=== PATIENT | male | born 1940 | race Two or more races ===

== ENCOUNTER 2017-03-08 11:01 | Emergency (ER) | payer MEDICARE ==
[2017-03-08] MEDS ORDERED: ONDANSETRON HCL INJ/PF 4 MG/2 ML SDV IV ONE (11:13)
[2017-03-08] MEDS ORDERED: MORPHINE SULFATE 10 MG/ML INJ IV ONE ×2 (11:13→12:19)
--- NOTE | 2017-03-08 11:15 | ER Document Report ---
ED Medical Screen (RME) - General Chief Complaint: Fall Injury Stated Complaint: FALL/SHOULDER PAIN Time Seen by Provider: 03/08/17 11:12 Notes: Patient was referred from an outside facility. Patient brings a copy of his x- ray with him. He states it shows that his shoulder is dislocated. He states that this morning he fell while moving some furniture and sustained an injury to his left shoulder. He states he did not hit his head this morning. However he did fall yesterday and hit his head. Patient does have some dried blood on the top of his head from yesterday's fall. Patient is on Coumadin. TRAVEL OUTSIDE OF THE [place] IN LAST 30 DAYS: No - Related Data Allergies/Adverse Reactions: No Known Allergies Allergy (Verified 03/08/17 11:02) Home Medications: Current Home Medications Warfarin Sodium [Warfarin Sodium] 0.5 tab PO DAILY 03/08/17 [History] Physical Exam - Vital signs Vitals: Temp Pulse Resp BP Pulse Ox 98.2 F 67 22 H 148/63 H 94 03/08/17 11:08 03/08/17 11:08 03/08/17 11:08 03/08/17 11:08 03/08/17 11:08 Course - Vital Signs Vital signs: Temp Pulse Resp BP Pulse Ox 98.2 F 67 22 H 148/63 H 94 03/08/17 11:08 03/08/17 11:08 03/08/17 11:08 03/08/17 11:08 03/08/17 11:08
[2017-03-08 12:06] LABS: ABSOLUTE LYMPHOCYTES (AUTO) 0.9 10^3/uL (0.5-4.7); ABSOLUTE MONOCYTES (AUTO) 0.4 10^3/uL (0.1-1.4); ABSOLUTE NEUT (AUTO) 9.9 10^3/uL (1.7-8.2); BASOPHILS % (AUTO) 0.3 % (0-2); EOSINOPHILS % (AUTO) 0.2 % (0-6); HEMATOCRIT 48.2 % (37.9-51.0); HGB HCT DIFFERENCE -0.2; LYMPHOCYTES % (AUTO) 8.3 % (13-45); MEAN CORPUSCULAR HEMOGLOBIN 31.5 pg (27.0-33.4); MEAN CORPUSCULAR HGB CONC 33.1 g/dL (32.0-36.0); MEAN CORPUSCULAR VOLUME 95 fl (80-97); MONOCYTES % (AUTO) 3.7 % (3-13); RED BLOOD COUNT 5.06 10^6/uL (4.35-5.55); RED CELL DISTRIBUTION WIDTH 14.8 % (11.5-14.0); SEGMENTED NEUTROPHILS % (AUTO) 87.5 % (42-78); WHITE BLOOD COUNT 11.4 10^3/uL (4.0-10.5)
--- NOTE | 2017-03-08 12:27 | ER Document Report ---
ED Fall - General Chief Complaint: Fall Injury Stated Complaint: FALL/SHOULDER PAIN Time Seen by Provider: 03/08/17 11:12 Information source: Patient Notes: Patient is a 76-year-old [place]-speaking male who presents with his daughter after the patient had an unwitnessed fall in the kitchen. He states through translation that he is was attempting to move a chair and lost his balance slipping on the floor landing on his left shoulder. Patient went to an outside urgent care center with supposedly an x-ray of the left shoulder showing a displacement without fracture. Patient states initially that he has pain only to his left shoulder. Patient is on Coumadin secondary to a heart valve replacement 15 years ago. When questioned directly the patient does state he has some left lateral rib pain, and some posterior neck pain. He does deny hitting his head or headache. He denies vomiting or loss of consciousness. Pt denies any and all palpitations, lightheadedness, dizziness, chest pain, or any other inciting incident. TRAVEL OUTSIDE OF THE [place] IN LAST 30 DAYS: No - HPI Occurred: This morning Where: Home Context: Tripped, Slipped Associated symptoms: denies: Lost consciousness, Dazed/confused Location of injury/pain: Other - See above Quality of pain: Achy Severity: Mild Pain Level: 2 Prehospital interventions: No: C-collar, Backboard - Related data Allergies/Adverse Reactions: No Known Allergies Allergy (Verified 03/08/17 11:02) Home Medications: Current Home Medications Warfarin Sodium [Warfarin Sodium] 0.5 tab PO DAILY 03/08/17 [History] Past Medical History - General Information source: Patient, Relative - Social History Smoking Status: Never Smoker Cigarette use (# per day): No Chew tobacco use (# tins/day): No Smoking Education Provided: No Frequency of alcohol use: None Drug Abuse: None Family History: Reviewed & Not Pertinent Patient has suicidal ideation: No Patient has homicidal ideation: No Renal/ Medical History: Denies: Hx Peritoneal Dialysis Review of Systems - Review of Systems Constitutional: denies: Fever EENT: denies: Eye discharge, Nose discharge Cardiovascular: denies: Chest pain, Palpitations Respiratory: denies: Cough, Short of breath, Wheezing Gastrointestinal: denies: Vomiting Genitourinary: denies: Dysuria Musculoskeletal: denies: Back pain, Leg swelling Skin: Other - no hives. denies: Rash Neurological/Psychological: Other - no slurred speech -: Yes All other systems reviewed and negative Physical Exam - Vital signs Vitals: Temp Pulse Resp BP Pulse Ox 98.2 F 67 22 H 148/63 H 94 03/08/17 11:08 03/08/17 11:08 03/08/17 11:08 03/08/17 11:08 03/08/17 11:08 Notes: Reviewed vital signs and nursing note as charted by RN. CONSTITUTIONAL: Alert and oriented and responds appropriately to questions. Well -appearing; well-nourished HEAD: Normocephalic; atraumatic EYES: PERRL; full extraocular range of motion ENT: Normal nose; no rhinorrhea NECK: Supple without meningismus; mildly tender to palpation along the midline lateral cervical spine without step-offs, swelling, or obvious deformity CARD: Regular rate and rhythm; no murmurs, no clicks, no rubs, no gallops; symmetric distal pulses RESP: Normal chest excursion without splinting or tachypnea; breath sounds clear and equal bilaterally; no anterior posterior rib pain present ABD/GI: Normal bowel sounds; non-distended; soft, non-tender BACK: The back appears normal and is non-tender to palpation EXT: Patient has decreased range of motion of the left shoulder with loss of fullness to the lateral shoulder region. Sensation is intact to light touch of the lateral shoulder. 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 5 out of 5 bilateral upper and lower extremity strength other than the left upper arm which was not tested secondary to pain PSYCH: The patient's mood and manner are appropriate. Grooming and personal hygiene are appropriate. Course - Re-evaluation Re-evalutation: 03/08/17 12:36 Given the history and physical examination, on Coumadin, I will obtain a CT scan of the head, cervical spine, lateral left ribs, repeat shoulder, INR, and reassess. Patient currently has no focal neurological deficits other than as expected for left shoulder injury. We are unable to open the patient's outside films we will repeat a left shoulder x-ray. I have gone over the anesthesia history with the patient and his daughter. Patient supposedly has had no untoward effects secondary to anesthesia. Patient has no allergies. I have explained the risks and benefits of conscious sedation to the patient and his daughter. They do understand these risks. 03/08/17 13:58 INR and labs as recorded. INR is therapeutic. CT scan of the head and neck shows no obvious acute findings. X-ray left shoulder shows an anterior dislocation. We will prepare the patient for conscious sedation. 03/08/17 16:31 X-ray of the chest as recorded. I have called and discussed the radiograph with Dr. Molina the radiologist. I have alerted her to the left shoulder dislocation on the x-ray of the chest. I have also explained about the patient' s presentation with any lack of cough, shortness of breath, or fevers. I have explained the slip and left shoulder dislocation. She states she does not believe a CT scan is required to further investigate her interpretation as she believes it is most likely low lung volumes. - Vital Signs Vital signs: Temp Pulse Resp BP Pulse Ox 98.2 F 71 16 168/128 H 99 03/08/17 11:08 03/08/17 16:00 03/08/17 16:01 03/08/17 16:01 03/08/17 16:01 - Laboratory Result Diagrams: 03/08/17 11:35 03/08/17 11:35 Laboratory results interpreted by me: 03/08/17 03/08/17 03/08/17 11:35 11:35 11:35 WBC 11.4 H RDW 14.8 H Seg Neutrophils % 87.5 H Lymphocytes % 8.3 L Absolute Neutrophils 9.9 H PT 27.0 H Carbon Dioxide 21 L Glucose 114 H Procedures - Conscious Sedation Conscious sedation Time started: 15:33 Time completed: 15:42 Consent obtained: Yes Prior complications: Procedural sedation Pt with a severe systemic disease.: P3. - ASA Classification. Airway Evaluation: Obese Mallampati Classification: Class 2 Used during procedure: Suction available, IV access obtained, Pulse ox on pt., air conditioning installer on pt. Medications administered: Ketamine Reversal agents: None I personally performed/intraservice time: Sedation, Procedure, 30 min or less Complications: No - Joint Reduction/Fracture Care Left Shoulder Consent obtained: Yes Conscious sedation: Yes Pre-procedure NV exam: Yes Fracture: Closed Manipulation comment: Traction countertraction Post-procedure NV exam: Yes Post-reduction x-ray: Joint reduced Reduction attempts: 1 Complications: No Discharge - Discharge Clinical Impression: Accidental fall Qualifiers: Encounter type: initial encounter Qualified Code(s): W19.XXXA - Unspecified fall, initial encounter Dislocation of left shoulder joint Qualifiers: Encounter type: initial encounter Qualified Code(s): S43.005A - Unspecified dislocation of left shoulder joint, initial encounter Cervical strain, acute Qualifiers: Encounter type: initial encounter Qualified Code(s): S16.1XXA - Strain of muscle, fascia and tendon at neck level, initial encounter Condition: Good Disposition: HOME, SELF-CARE Additional Instructions: Come back immediately with any discoloration of the arm, increased pain, weakness or numbness of the arm, confusion, vomiting, or any other acute problems. Please make sure that he follows-up with the primary doctor and orthopedic as we have referral. Referrals: CLEO IRENE MD [ACTIVE STAFF] - Follow up as needed
[2017-03-08 12:29] LABS: ANION GAP 14 (5-19); BLOOD UREA NITROGEN 18 mg/dL (7-20); CALCIUM 9.1 mg/dL (8.4-10.2); CARBON DIOXIDE 21 mmol/L (22-30); CHLORIDE 107 mmol/L (98-107); CREATININE RESULT 0.85 mg/dL (0.52-1.25); GLUCOSE 114 mg/dL (75-110); POTASSIUM 4.1 mmol/L (3.6-5.0); SODIUM 142.1 mmol/L (137-145)
--- NOTE | 2017-03-08 12:29 | RADIOLOGY REPORT (SQ) ---
EXAM DESCRIPTION: CT HEAD WITHOUT COMPLETED DATE/TIME: 03/08/2017 12:00 pm REASON FOR STUDY: fall/on coumadin COMPARISON: None. TECHNIQUE: Axial images acquired through the brain without intravenous contrast. Images reviewed wi th bone, brain and subdural windows. Images stored on PACS. All CT scanners at this facility use dose modulation, iterative reconstruction, and/or weight based d osing when appropriate to reduce radiation dose to as low as reasonably achievable (ALARA). [facility]: Dose Right [facility]: CareDose [facility]: Dose Right [facility]: Teradose 4D [facility]: [employer] RADIATION DOSE: mGy. LIMITATIONS: None. FINDINGS: VENTRICLES: Normal size and contour. CEREBRUM: No masses. No hemorrhage. No midline shift. No evidence for acute infarction. Normal gra y/white matter differentiation. No areas of low density in the white matter. CEREBELLUM: No masses. No hemorrhage. No alteration of density. No evidence for acute infarction. EXTRAAXIAL SPACES: No fluid collections. No masses. ORBITS AND GLOBE: No intra- or extraconal masses. Normal contour of globe without masses. CALVARIUM: No fracture. PARANASAL SINUSES: No fluid or mucosal thickening. SOFT TISSUES: No mass or hematoma. OTHER: No other significant finding. IMPRESSION: NORMAL BRAIN CT WITHOUT CONTRAST. EVIDENCE OF ACUTE STROKE: NO. COMMENT: Quality ID # [id number]: Final reports with documentation of one or more dose reduction techniques (e.g., Automated exposure control, adjustment of the mA and/or kV according to patient size, use of iterative reconstruction technique) TECHNICAL DOCUMENTATION: JOB ID: [id number] [employer]- All Rights Reserved
--- NOTE | 2017-03-08 13:07 | RADIOLOGY REPORT (SQ) ---
EXAM DESCRIPTION: CT CERVICAL SPINE WITHOUT COMPLETED DATE/TIME: 03/08/2017 12:58 pm REASON FOR STUDY: FALL 10, left lateral rib pain COMPARISON: None. TECHNIQUE: Axial images acquired through the cervical spine without intravenous contrast. Images re viewed with lung, soft tissue and bone windows. Reconstructed coronal and sagittal MPR images review ed. Images stored on PACS. All CT scanners at this facility use dose modulation, iterative reconstruction, and/or weight based d osing when appropriate to reduce radiation dose to as low as reasonably achievable (ALARA). [facility]: Dose Right [facility]: CareDose [facility]: Dose Right [facility]: Teradose 4D [facility]: [employer] RADIATION DOSE: mGy. LIMITATIONS: Motion. FINDINGS: ALIGNMENT: Grade 1 anterolisthesis C4 relative to C5. MINERALIZATION: Osteopenia. VERTEBRAL BODIES: No fractures or dislocation. DISCS: Multilevel disc space narrowing with osteophytes. FACETS, LATERAL MASSES, POSTERIOR ELEMENTS: Facet arthropathy. No fractures. No dislocation. No ac [employer] [place] findings. HARDWARE: None in the spine. VISUALIZED RIBS: No fractures. LUNG APICES AND SOFT TISSUES: No significant or acute findings. OTHER: No other significant finding. IMPRESSION: CHRONIC DEGENERATIVE CHANGES. NO ACUTE FINDINGS. TECHNICAL DOCUMENTATION: JOB ID: [id number] Quality ID # [id number]: Final reports with documentation of one or more dose reduction techniques (e.g., Au tomated exposure control, adjustment of the mA and/or kV according to patient size, use of iterative reconstruction technique) 2010 [employer]- All Rights Reserved
--- NOTE | 2017-03-08 13:26 | RADIOLOGY REPORT (SQ) ---
EXAM DESCRIPTION: SHOULDER LEFT 2 OR MORE VIEWS COMPLETED DATE/TIME: 03/08/2017 1:11 pm REASON FOR STUDY: 10. suspected dislocation COMPARISON: None. NUMBER OF VIEWS: Two views. TECHNIQUE: Frontal and Y-view images acquired of the left shoulder. LIMITATIONS: None. FINDINGS: MINERALIZATION: Normal. BONES: Anterior glenohumeral dislocation. JOINTS: See above. VISUALIZED LUNGS AND RIBS: No pneumothorax. No rib fracture. SOFT TISSUES: No radiopaque foreign body. OTHER: No other significant finding. IMPRESSION: Anterior glenohumeral dislocation. TECHNICAL DOCUMENTATION: JOB ID: [id number] [employer]- All Rights Reserved
[2017-03-08] MEDS ORDERED: KETAMINE HCL INJ 500 MG/10 ML VIAL IV ONE (13:55)
--- NOTE | 2017-03-08 15:24 | RADIOLOGY REPORT (SQ) ---
EXAM DESCRIPTION: CHEST SINGLE VIEW COMPLETED DATE/TIME: 03/08/2017 2:24 pm REASON FOR STUDY: 10, left lateral rib pain COMPARISON: None. EXAM PARAMETERS: NUMBER OF VIEWS: One view. TECHNIQUE: Single frontal radiographic view of the chest acquired. RADIATION DOSE: NA LIMITATIONS: None. FINDINGS: LUNGS AND PLEURA: Parenchymal opacities at the lung bases left greater than right. No pne umothorax. MEDIASTINUM AND HILAR STRUCTURES: No masses. Contour normal. HEART AND VASCULAR STRUCTURES: Heart normal in size. Normal vasculature. BONES: No acute findings. HARDWARE: Sternal wires. OTHER: No other significant finding. IMPRESSION: Parenchymal opacities at the lung bases left greater than right. Consistent with pneumo manisha. TECHNICAL DOCUMENTATION: JOB ID: [id number] [employer]- All Rights Reserved
--- NOTE | 2017-03-08 16:33 | RADIOLOGY REPORT (SQ) ---
EXAM DESCRIPTION: SHOULDER LEFT 2 OR MORE VIEWS COMPLETED DATE/TIME: 03/08/2017 4:21 pm REASON FOR STUDY: s/p reduction COMPARISON: None. TECHNIQUE: Portable AP and Y-view of the left shoulder. LIMITATIONS: None. FINDINGS: There has been interval reduction of the previously described anterior dislocation IMPRESSION: Interval reduction of the previously described anterior dislocation. TECHNICAL DOCUMENTATION: JOB ID: [id number] [employer]- All Rights Reserved
[2017-03-08 17:03] VITALS: BP 124/71
== END 2017-03-08 17:30 | disposition home or self-care (01) ==
LOC: ER 11:01
PROC: 0RSKXZZ Reposition Left Shoulder Joint, External Approach (ICD-10-PCS; principal; 2017-03-08)
DX: S43.005A Unspecified dislocation of left shoulder joint, initial encounter (principal); S16.1XXA Strain of muscle, fascia and tendon at neck level, initial encounter; W01.0XXA Fall on same level from slipping, tripping and stumbling without subsequent striking against object, initial encounter; Y92.000 Kitchen of unspecified non-institutional (private) residence as the place of occurrence of the external cause; Z79.02 Long term (current) use of antithrombotics/antiplatelets; Z95.2 Presence of prosthetic heart valve
CPT/HCPCS: 96376; 99284; 99152; 96374; 96375; 36415; 85025; 85610; 80048; 71010; 73030; 70450; 72125; 23650; J3490; J2270; J2405